=== PATIENT | male | born 1985 | race Caucasian/White ===

== ENCOUNTER 2018-12-11 10:54 | Day surgery (SDC) | payer OTHER ==
[~2018-12-11] VITALS: Ht 188 cm; Wt 78.6 kg
[2018-12-11] MEDS ORDERED: TALTZ SYRI80 MG/1 ML SQ (11:45)
[2018-12-11 13:07] VITALS: BP 119/75; PULSE 40; TEMP 98
[2018-12-11] MEDS ORDERED: OXYCODONE H5 MG/5 ML PO (15:12)
[2018-12-11 15:35] VITALS: BP 111/75; PULSE 50; TEMP 98.6
--- NOTE | 2018-12-11 15:35 | NUR ---
Patient arrives back from PACU alert, denies pain or nausea. Patient monitor applied, vitals stable. Patient's spouse brought to bedside.
[2018-12-11 15:50] VITALS: BP 123/67; PULSE 54
--- NOTE | 2018-12-11 15:50 | NUR ---
Patient tolerates juice without any nausea. Denies wanting anything to eat at this time. Denies pain or nausea. Reports he is ready to go home.
--- NOTE | 2018-12-11 16:00 | NUR ---
Dismissal instructions gone over with patient and spouse. Both verbalize understanding and all questions answered.
[2018-12-11 16:02] VITALS: BP 111/75; PULSE 50; TEMP 98.4
--- NOTE | 2018-12-11 16:15 | NUR ---
Patient discharged to home thanking staff for services.
== END 2018-12-11 16:15 | disposition home or self-care (01) ==
LOC: SDCO 10:54
DX: J35.01 Chronic tonsillitis (principal); L40.9 Psoriasis, unspecified; Z79.899 Other long term (current) drug therapy
CPT/HCPCS: J1100; J2175; J2270; J2405; J2704; J3010; J7120

== ENCOUNTER 2018-12-18 03:46 | Emergency (ER) | payer OTHER ==
[~2018-12-18] VITALS: Ht 188 cm; Wt 76.8 kg
[~2018-12-18 03:46] MED LIST: OXYCODONE H5 MG/5 ML PO; TALTZ SYRI80 MG/1 ML SQ
[2018-12-18 03:52] VITALS: TEMP 98.2
[2018-12-18 04:29] LABS: BASO # 0.1 (0.0-0.2); BASO % 0.4 % (0.0-2.0); EOS # 0.1 (0.0-0.7); EOS % 1.1 % (0-4.0); GRAN # 8.1 (1.4-6.5); GRAN % 67.9 % (42.2-75.2); HEMATOCRIT 46.6 % (42.0-52.0); HEMOGLOBIN 15.6 g/dl (13.5-18.0); LYMPH # 2.6 (1.2-3.4); LYMPH % 22.1 % (20.0-51.0); MEAN CELL VOLUME 87 fl (80.0-100.0); MEAN CORPUSCULAR HEMOGLOBIN 29 pg (27.0-31.0); MEAN CORPUSCULAR HGB CONC 34 g/dl (33.0-37.0); MEAN PLATELET VOLUME 10.7 fl (7.4-10.4); MONO % 8.2 % (1.7-9.3); PLATELET COUNT 230 K/mm3 (130-400); RED BLOOD COUNT 5.37 M/mm3 (4.20-5.60); REDCELL DISTRIBUTION WIDTH-CV 12.5 % (11.5-14.5)
[2018-12-18 05:48] VITALS: BP 117/77; PULSE 49
== END 2018-12-18 05:48 | disposition home or self-care (01) ==
LOC: COL.ER 03:46
PROVIDERS: Otolaryngology
DX: J95.830 Postprocedural hemorrhage of a respiratory system organ or structure following a respiratory system procedure (principal); Z90.49 Acquired absence of other specified parts of digestive tract
CPT/HCPCS: J2270; J7120

== ENCOUNTER 2018-12-18 09:38 | Emergency (ER) | payer OTHER ==
[~2018-12-18] VITALS: Ht 188 cm; Wt 76.8 kg
[2018-12-18 09:42] VITALS: TEMP 97.4
[2018-12-18 12:27] VITALS: BP 124/78; PULSE 60
== END 2018-12-18 12:29 | disposition home or self-care (01) ==
LOC: COL.ER 09:38
DX: J95.830 Postprocedural hemorrhage of a respiratory system organ or structure following a respiratory system procedure (principal)